=== PATIENT | female | born 1960 | race African-American/Black ===

== ENCOUNTER 2017-04-09 15:37 | Outpatient (CLI) ==
[2016-10-25 15:43] VITALS: BMI 28.3
--- NOTE | 2017-04-09 15:59 | DI ---
EXAM: CHEST FRONTAL AND LATERAL VIEWS HISTORY: Cough. COMPARISON: 09/09/2013 FINDINGS: Heart size remains within normal limits. Patchy densities in the lower lung zones slight ly more noticeable on the left. Lungs are otherwise unremarkable. No vascular congestion or pleura l fluid. IMPRESSION: Questionable subtle basilar infiltrates.
== END 2017-04-09 15:38 | disposition home or self-care (01) ==
LOC: RAD 15:37
PROVIDERS: ATTEND Family Medicine
DX: J32.9 Chronic sinusitis, unspecified (principal)

== ENCOUNTER 2017-04-17 09:39 | Outpatient (CLI) ==
[2016-10-25 15:43] VITALS: BMI 28.3
--- NOTE | 2017-04-17 10:21 | CT ---
Exam: CT of the sinuses without intravenous contrast. Comparison: CT of the brain performed 06/25/2011. Reason for exam: Recurrent sinusitis. FINDINGS: There is similar appearing mucosal thickening in the ethmoid sinuses with polypoid mucosa l thickening in both maxillary sinuses. The sphenoid sinuses and mastoid air cells are unopacified. No evidence of osseous erosion or acute fracture. The lamina papyracea is intact. There is no evid ence of inflammatory change in the intra or extraconal spaces. Impression: 1. Mucosal thickening in the ethmoid sinuses consistent with chronic sinus disease. 2. Polypoid mucosal thickening in both maxillary sinuses. 3. No acute fracture or osseous erosion.
== END 2017-04-17 09:40 | disposition home or self-care (01) ==
LOC: RAD 09:39
PROVIDERS: ATTEND Family Medicine
DX: J32.9 Chronic sinusitis, unspecified (principal)

== ENCOUNTER 2018-05-13 17:59 | Emergency (ER) ==
--- NOTE | 2018-05-13 18:17 | ED.PDOC ---
General ED Provider: Dr. SUZY CALDERON Chief Complaint: Head Injury Stated Complaint: head injury Time Seen by Physician: 18:00 (seen with umair at all times ) Mode of Arrival: Walk-In Information Source: Patient Exam Limitations: No limitations Primary Care Provider: ANDREY SANTACRUZ Nursing and Triage Documentation Reviewed and Agree: Yes Does patient meet sepsis criteria?: Yes If yes, has appropriate treatment been initiated?: No System Inflammatory Response Syndrome: Not Applicable Sepsis Protocol: For patient's 13 years and over: Temp is 96.8 and below OR 101 and greater Pulse >90 BPM Resp >20/minute Acutely Altered Mental Status Are patient's symptoms suggestive of a new infection, such as: -Pneumonia -Skin, Soft Tissue -Endocarditis -UTI -Bone, Joint Infection -Implantable Device -Acute Abdominal Infection -Wound Infection -Meningitis -Blood Stream Catheter Infection -Unknown Trauma/Injury Complaint Exam - Head Injury Complaint/Exam Location of Pain: Reports: Forehead Mechanism of Injury: Reports: Trauma (blunt force) Onset/Duration: 3 days ago Symptoms Are: Still present Initial Severity: Mild Current Severity: Mild Character: Reports: Dull Aggravating: Reports: None Alleviating: Reports: None Associated Signs and Symptoms: Denies: Confusion, Memory loss, Seizure, Epistaxis, Dental malocclusion, Neck pain, Nausea, Vomiting Loss of Consciousness: None SDH Risk Factors: Present: None Related Surgical History: Reports: None Glascow Coma Scale (see protocol): 15 Focal Weakness: Present: None Focal Sensory Loss: Present: None Gait: Normal Gag Reflex Present: Yes Finger to Nose: Normal Nexus Low Risk Criteria: No post-midline CS tender, No evidence of intoxicat., No focal neuro deficit, No distracting injuries Review of Systems - Review Of Systems Constitutional: Reports: No symptoms Eyes: Reports: No symptoms Ears, Nose, Mouth, Throat: Reports: No symptoms Respiratory: Reports: No symptoms Cardiac: Reports: No symptoms GI: Reports: No symptoms : Reports: No symptoms Musculoskeletal: Reports: No symptoms Skin: Reports: No symptoms Neurological: Reports: Headache Endocrine: Reports: No symptoms Hematologic/Lymphatic: Reports: No symptoms All Other Systems: Reviewed and Negative Past Medical History - Past Medical History Previously Healthy: No Endocrine: Reports: DM 2 Cardiovascular: Reports: None Respiratory: Reports: None Hematological: Reports: None Gastrointestinal: Reports: None Genitourinary: Reports: None Neuro/Psych: Reports: None Musculoskeletal: Reports: None Cancer: Reports: None Last Menstrual Period: menopause - Surgical History General Surgical History: Reports: None - Family History Family History: Reports: None - Social History Smoking Status: Never smoker Hx Substance Use: No Alcohol Screening: None Physical Exam - Physical Exam Appearance: Well-appearing, No pain distress, Well-nourished Eyes: MARIA DOLORES, EOMI, Conjunctiva clear ENT: Ears normal, Nose normal, Oropharynx normal Respiratory: Airway patent, Breath sounds clear, Breath sounds equal, Respirations nonlabored Cardiovascular: RRR, Pulses normal, No rub, No murmur GI/: Soft, Nontender, No masses, Bowel sounds normal, No Organomegaly Musculoskeletal: Normal strength, ROM intact, No edema, No calf tenderness Skin: Warm, Dry, Normal color Neurological: Sensation intact, Motor intact, Reflexes intact, Cranial nerves intact, Alert, Oriented Psychiatric: Affect appropriate, Mood appropriate Interpretation - Radiology Interpretation Radiology Interpretation By: Radiologist Critical Care Note - Critical Care Note Total Time (mins): 0 Course - Course Orders, Labs, Meds: Orders Category Date Time Status CT HEAD W/O CONTRAST Stat RADS 05/13/18 18:15 Ordered Vital Signs: Temp Pulse Resp BP Pulse Ox 05/13/18 17:59 98.6 F 75 16 120/82 97 Departure - Departure Time of Disposition: 19:00 Disposition: HOME SELF-CARE Discharge Problem: Injury of head Head ache Qualifiers: Headache type: unspecified Headache chronicity pattern: chronic headache Intractability: not intractable Qualified Code(s): R51 - Headache Instructions: Acute Headache (ED), Head Injury (ED) Condition: Good Pt referred to PMD for follow-up: Yes IPMP verified?: No Additional Instructions: Please call your Family Physician as soon as possible to schedule a follow-up appointment. Allergies/Adverse Reactions: Allergies No Known Allergies Allergy (Verified 05/13/18 18:07) Home Medications: Ambulatory Orders Metformin HCl [Fortamet] 500 mg PO BID 10/25/16 Multivit-Min/Iron/Folic Acid/K [Multi-Day Plus Minerals Tablet] 1 each PO DAILY 05/13/18
[2018-05-13 18:19] VITALS: BP 120/82; TEMP 98.6; BMI 32.4
--- NOTE | 2018-05-13 19:00 | CT ---
EXAM: Noncontrast CT head. HISTORY: Injury with pain. COMPARISON: 06/25/2011 TECHNIQUE: Noncontrast CT head was performed with axial coronal and sagittal reconstructions. Findings: There is preservation of the flaherty-white differential without evidence of definitive large vessel acut e cortical infarct identified. No acute intracranial hemorrhage is identified. No midline shift is i dentified. No definitive intracranial mass lesion is identified within technical limitations of nonco ntrast CT. The basal cisterns are patent. The ventricles are normal in size and configuration. Limi lillian evaluation of the skull demonstrates no visualized lucent skull acute fractures or destructive os seous lesions identified within the visualized portions of the skull. Partially visualized paranasal sinuses and mastoid air cells appear relatively clear in the visualized regions. Impression: 1. No acute intracranial hemorrhage there is identified.
== END 2018-05-13 19:07 | disposition home or self-care (01) ==
LOC: ED 17:59
DX: S09.90XA Unspecified injury of head, initial encounter (principal); R51 Headache; W22.8XXA Striking against or struck by other objects, initial encounter
CPT/HCPCS: 99283

== ENCOUNTER 2018-11-11 15:51 | Emergency (ER) ==
[2018-11-11 15:57] VITALS: BP 149/92; TEMP 97; BMI 30.2
[2018-11-11] MEDS ORDERED: NORCO 10-325 PO STA (16:30)
[2018-11-11] MEDS ORDERED: ZOFRAN 4 MG/2 ML IVP STA ×2 (16:31→18:32)
[2018-11-11] MEDS ORDERED: SODIUM CHLORIDE 1,000 ML IV STA ×2 (16:31→18:31)
--- NOTE | 2018-11-11 17:01 | DI ---
EXAM: Two views of the chest. History: Cough. Comparison: Chest radiograph 04/09/2017 Findings: Heart size is within limits. Left basilar subsegmental atelectasis or pneumonia. No appr eciable pleural fluid and no pneumothorax. No acute osseous abnormalities. Impression: Left basilar subsegmental atelectasis or pneumonia
[2018-11-11] MEDS ORDERED: ROCEPHIN 1 GM in SODIUM CHLORIDE 50 ML IV STA (17:26)
[2018-11-11] MEDS ORDERED: ROCEPHIN ONE (17:28)
--- NOTE | 2018-11-11 17:30 | ED.PDOC ---
General ED Provider: Dr. SUZY CALDERON Chief Complaint: Nausea/Vomiting Stated Complaint: nausea, vomiting Time Seen by Physician: 16:00 (bifasicular block noted no history of syncope ) Mode of Arrival: Walk-In Information Source: Patient Exam Limitations: No limitations Primary Care Provider: ANDREY SANTACRUZ Nursing and Triage Documentation Reviewed and Agree: Yes Does patient meet sepsis criteria?: No System Inflammatory Response Syndrome: Not Applicable Sepsis Protocol: For patient's 13 years and over: Temp is 96.8 and below OR 101 and greater Pulse >90 BPM Resp >20/minute Acutely Altered Mental Status Are patient's symptoms suggestive of a new infection, such as: -Pneumonia -Skin, Soft Tissue -Endocarditis -UTI -Bone, Joint Infection -Implantable Device -Acute Abdominal Infection -Wound Infection -Meningitis -Blood Stream Catheter Infection -Unknown GI Complaint Exam - Vomiting/Diarrhea Complaint/Exam Onset/Duration: 4 days Symptoms Are: Still present Episodes of Vomiting over last 24 Hours: 2 Episodes of Diarrhea Over Last 24 Hours: 0 Initial Severity: Mild Current Severity: None Character of Vomiting: Reports: Non-bilious Aggravating: Reports: None Alleviating: Reports: None Associated Signs and Symptoms: Reports: Abdominal pain. Denies: Dizziness, Light-headedness, Melena, Hematemesis, Fever, Cramping Non-GI Risk Factors: Reports: None Surgical Obstruction Risk Factors: Reports: None Related Surgical History: Reports: None Abdominal Findings: Present: None Kussmaul Respirations Present: No Differential Diagnoses: Dehydration, Viral Gastroenteritis, Bacterial Gastroenteritis, UTI Review of Systems - Review Of Systems Constitutional: Reports: No symptoms Eyes: Reports: No symptoms Ears, Nose, Mouth, Throat: Reports: No symptoms Respiratory: Reports: No symptoms Cardiac: Reports: No symptoms GI: Reports: Abdominal pain, Nausea, Vomiting. Denies: Diarrhea : Reports: No symptoms Musculoskeletal: Reports: No symptoms Skin: Reports: No symptoms Neurological: Reports: No symptoms Endocrine: Reports: No symptoms Hematologic/Lymphatic: Reports: No symptoms All Other Systems: Reviewed and Negative Past Medical History - Past Medical History Previously Healthy: No Endocrine: Reports: DM 2 Cardiovascular: Reports: None Respiratory: Reports: None Hematological: Reports: None Gastrointestinal: Reports: None Genitourinary: Reports: None Neuro/Psych: Reports: None Musculoskeletal: Reports: None Cancer: Reports: None Last Menstrual Period: menopause - Surgical History General Surgical History: Reports: None - Family History Family History: Reports: None - Social History Smoking Status: Never smoker Hx Substance Use: No Alcohol Screening: None Physical Exam - Physical Exam Appearance: Ill-appearing Ill-appearing: Mild Eyes: MARIA DOLORES, EOMI, Conjunctiva clear ENT: Dry mucosa Respiratory: Airway patent, Breath sounds clear, Breath sounds equal, Respirations nonlabored Cardiovascular: RRR, Pulses normal, No rub, No murmur GI/: Soft, Nontender, No masses, Bowel sounds normal, No Organomegaly Musculoskeletal: Normal strength, ROM intact, No edema, No calf tenderness Skin: Warm, Dry, Normal color Neurological: Sensation intact, Motor intact, Reflexes intact, Cranial nerves intact, Alert, Oriented Psychiatric: Affect appropriate, Mood appropriate Interpretation - Radiology Interpretation Radiology Results: Negative Exam Interpreted: CXR - Mri Manager Rate: Normal Rhythm: Sinus Ectopy: None - EKG Interpretation Rate: Normal Rhythm: Other (bifasicular block) Ectopy: None [place]: Left EKG Comparison: Other (no old ekg to compare) Re-Evaluation - Re-Evaluation Time of Re-Evaluation: 17:29 Status: Improved Vital Signs Stable: Yes Pain Level: 0 Appearance: NAD Lungs: Clear Skin: Warm and Dry Neuro: Alert and Oriented X3 CV: RRR Critical Care Note - Critical Care Note Total Time (mins): 0 Course - Course Hematology/Chemistry: 11/11/18 16:47 11/11/18 16:47 Orders, Labs, Meds: Lab Review 11/11/18 11/11/18 11/11/18 16:05 16:30 16:47 WBC 6.01 RBC 5.12 Hgb 15.6 Hct 46.4 MCV 90.6 MCH 30.5 MCHC 33.6 RDW Coeff of [place] 11.9 Plt Count 227 Immature Gran % (Auto) 0.2 Neut % (Auto) 56.4 Lymph % (Auto) 36.6 [place] % (Auto) 6.2 Eos % (Auto) 0.3 Baso % (Auto) 0.3 Immature Gran # (Auto) 0.0 Neut # (Auto) 3.4 Lymph # (Auto) 2.2 [place] # (Auto) 0.4 Eos # (Auto) 0.0 Baso # (Auto) 0.0 Sodium Potassium Chloride Carbon Dioxide Anion Gap BUN Creatinine Estimated GFR (MDRD) BUN/Creatinine Ratio Glucose Lactic Acid Calcium Total Bilirubin AST ALT Alkaline Phosphatase Total Protein Albumin Globulin Albumin/Globulin Ratio Amylase Lipase Urine Color Yellow Urine Clarity Clear Urine pH 6.0 Ur Specific [place] 1.015 Urine Protein Negative Urine Glucose (UA) 2+ Urine Ketones 2+ Urine Blood Trace-intact Urine Nitrite Negative Urine Bilirubin Negative Urine Urobilinogen 1.0 Ur Leukocyte Esterase Negative Urine Microscopic RBC 0-2 Ur Squamous Epith Cells 0-2 Influ A Molecular Assay Negative by naat Influ B Molecular Assay Negative by naat 11/11/18 11/11/18 16:47 16:47 WBC RBC Hgb Hct MCV MCH MCHC RDW Coeff of [place] Plt Count Immature Gran % (Auto) Neut % (Auto) Lymph % (Auto) [place] % (Auto) Eos % (Auto) Baso % (Auto) Immature Gran # (Auto) Neut # (Auto) Lymph # (Auto) [place] # (Auto) Eos # (Auto) Baso # (Auto) Sodium 134.7 Potassium 4.26 Chloride 99.8 Carbon Dioxide 25.6 Anion Gap 13.56 BUN 12.8 Creatinine 0.53 L Estimated GFR (MDRD) 144.00 BUN/Creatinine Ratio 24.15 Glucose 343.2 H Lactic Acid 1.20 Calcium 8.86 Total Bilirubin 0.66 AST 14.5 ALT 18.6 Alkaline Phosphatase 86.8 Total Protein 7.88 Albumin 4.27 Globulin 3.61 Albumin/Globulin Ratio 1.18 Amylase 83.4 Lipase 75.2 Urine Color Urine Clarity Urine pH Ur Specific [place] Urine Protein Urine Glucose (UA) Urine Ketones Urine Blood Urine Nitrite Urine Bilirubin Urine Urobilinogen Ur Leukocyte Esterase Urine Microscopic RBC Ur Squamous Epith Cells Influ A Molecular Assay Influ B Molecular Assay Orders Category Date Time Status EKG-(ED ONLY) Stat CARDIO 11/11/18 16:30 Completed ED IV/MEDIPORT/POWERPORT .ONCE EMERGENCY 11/11/18 16:30 Active AMYLASE Stat LAB 11/11/18 16:47 Completed BLOOD CULTURE (ED ONLY) Stat LAB 11/11/18 16:47 Received CBC W/ AUTO DIFF Stat LAB 11/11/18 16:47 Completed COMPREHENSIVE METABOLIC PANEL Stat LAB 11/11/18 16:47 Completed FLU A/B MOLECULAR Stat LAB 11/11/18 16:30 Completed LACTIC ACID Stat LAB 11/11/18 16:47 Completed LIPASE Stat LAB 11/11/18 16:47 Completed MOLECULAR GROUP A STREP Stat LAB 11/11/18 16:30 Completed PROCALCITONIN Stat LAB 11/11/18 16:47 Received URINALYSIS C & S IF INDICATED Stat LAB 11/11/18 16:05 Completed 0.9 % Sodium Chloride [Saline Flush] MEDS 11/11/18 16:29 Active 1 syr IVF PRN PRN Ceftriaxone Sodium [Rocephin] 1 gm MEDS 11/11/18 17:26 Ordered 0.9 % Sodium Chloride [Sodium Chloride] 50 ml IV ONCE Hydrocodone Bit/Acetaminophen [[place] 10-325] MEDS 11/11/18 16:30 Discontinued 1 tab PO ONCE STA Ondansetron HCl/Pf [Zofran 4 mg/2 ml] MEDS 11/11/18 16:31 Discontinued 4 mg IVP ONCE STA Sodium Chloride 0.9% [Sodium Chloride] 1,000 ml MEDS 11/11/18 16:31 Active IV BOLUS CHEST, 2 VIEWS PA & LAT Stat RADS 11/11/18 16:30 Completed Medications Generic Name Dose Route Start Last Admin Trade Name Freq PRN Reason Stop Dose Admin Sodium Chloride 1,000 mls @ 1,000 mls/hr 11/11/18 16:31 11/11/18 17:02 Sodium Chloride IV 11/11/18 17:30 1,000 mls/hr BOLUS STA Administration Ceftriaxone Sodium 1 gm/ 50 mls @ 75 mls/hr 11/11/18 17:26 Sodium Chloride IV 11/11/18 18:05 ONCE STA Sodium Chloride 1 syr 11/11/18 16:29 11/11/18 17:02 Saline Flush IVF 1 syr PRN PRN Administration To flush IV Discontinued Medications Generic Name Dose Route Start Last Admin Trade Name Freq PRN Reason Stop Dose Admin Hydrocodone Bitart/Acetaminophen 1 tab 11/11/18 16:30 [place] 10-325 PO 11/11/18 16:31 ONCE STA Ondansetron HCl 4 mg 11/11/18 16:31 11/11/18 17:03 Zofran 4 Mg/2 Ml IVP 11/11/18 16:32 4 mg ONCE STA Administration Vital Signs: Temp Pulse Resp BP Pulse Ox 11/11/18 15:51 97 F L 82 20 149/92 H 99 Departure - Departure Time of Disposition: 19:00 Disposition: HOME SELF-CARE Discharge Problem: Nausea, Vomiting, Bifascicular block Instructions: Dehydration (ED), Heart Block (ED) Condition: Good Pt referred to PMD for follow-up: Yes IPMP verified?: No Additional Instructions: Please call your Family Physician as soon as possible to schedule a follow-up appointment. Allergies/Adverse Reactions: Allergies No Known Allergies Allergy (Verified 11/11/18 15:58) Home Medications: Ambulatory Orders Metformin HCl [Fortamet] 500 mg PO BID 10/25/16 Multivit-Min/Iron/Folic Acid/K [Multi-Day Plus Minerals Tablet] 1 each PO DAILY 05/13/18
== END 2018-11-11 19:34 | disposition home or self-care (01) ==
LOC: ED 15:51
DX: R11.2 Nausea with vomiting, unspecified (principal); I45.2 Bifascicular block; R10.9 Unspecified abdominal pain; E11.9 Type 2 diabetes mellitus without complications
CPT/HCPCS: 36415; 80053; 81001; 82150; 83605; 83690; 84145; 85025; 87040; 87502; 87651; 93005; 93010; 96361; 96365; 96375; 96376; 99283